=== PATIENT | female | born 1950 | race Caucasian/White ===

== ENCOUNTER 2020-09-19 09:55 | Outpatient (REF) | payer MEDICARE, SELFPAY ==
[2020-09-19 11:13] LABS: MANUAL DIFF FLAG NO
[2020-09-19 11:42] LABS: Glucose Urine UA NEG (NEG); Leukocyte Esterase Urine 1+ (NEG); Nitrite Urine NEG (NEG); Urine Blood NEG (NEG); Urine Ketones NEG (NEG); Urine Protein NEG (NEG-TRACE)
[2020-09-19 11:44] LABS: Appearance Urine HAZY; Color Urine YELLOW
[2020-09-19 11:48] LABS: Alanine Aminotransferase 12 U/L (0-31); Albumin Level 4.5 g/dL (3.5-5.0); Alkaline Phosphatase 97 U/L (39-117); Anion Gap 14 (12-20); Aspartate Amino Transferase 15 U/L (5-31); Bilirubin Total 0.4 mg/dL (0.0-1.0); Blood Urea Nitrogen 23 mg/dL (9-16); Calcium 10.5 mg/dL (8.4-10.2); Carbon Dioxide 30 mmol/L (22-29); Chloride 103 mmol/L (96-108); Cholesterol 190 mg/dL; Estimated Glomerular Filt Rate 56; Glucose Fasting 102 mg/dL (60-99); HDL Cholesterol 50 mg/dL; LDL Cholesterol Calculated 110 mg/dl; Potassium 5.1 mmol/L (3.3-5.1); Sodium 142 mmol/L (135-145); Total Protein 7.2 g/dL (6.5-8.0); Triglycerides 154 mg/dL
[2020-09-19 11:52] LABS: Basophils Absolute Auto 0.1 X10*3/uL (0.0-0.2); Basophils Percent Auto 0.8 % (0-2); Eosinophils Absolute Auto 0.1 X10*3/uL (0.0-0.4); Eosinophils Percent Auto 1.4 % (0-4); Hematocrit 40.3 % (37-47); Hemoglobin 12.8 g/dl (12.0-16.0); Imm Gran Abs Auto 0.03 X10*3/uL (0.00-0.03); Imm Gran Pct Auto 0.4 % (0.0-0.4); Lymphocytes Absolute Auto 1.6 X10*3/uL (1.2-4.9); Lymphocytes Percent Auto 20.6 % (20-40); Mean Corpuscular HGB Conc 31.8 g/dl (31.0-35.0); Mean Corpuscular Volume 94.4 fL (80-98); Mean Platelet Volume 12.3 fL (9.4-12.3); Monocytes Absolute Auto 0.6 X10*3/uL (0.1-1.2); Monocytes Percent Auto 7.6 % (2-11); Neutrophils Absolute Auto 5.3 X10*3/uL (2.0-8.3); Neutrophils Percent Auto 69.2 % (45-73); Platelet Count 212 X10*3/uL (160-400); Red Blood Count 4.27 X10*6/uL (4.20-5.50); Red Cell Distribution Width 13.2 % (11.0-16.0); White Blood Count 7.7 X10*3/uL (4.8-10.8)
[2020-09-19 11:54] LABS: Bacteria Urine TRACE /LPF; RBC Urine 0 /HPF (0); Squamous Epithelial Cell Urine 3+ /LPF
[2020-09-19 12:01] LABS: Vitamin D 25-OH Total 71.8 ng/mL (>30)
[2020-09-19 12:04] LABS: Creatinine Urine 69.95 mg/dL; Microalbum/Creatinine Ratio Ur 12.8 ug/mg cr
[2020-09-19 12:12] LABS: TSH reflex Free T4 0.67 uIU/mL (0.32-4.0)
[2020-09-19 12:19] LABS: Folate > 20.0 ng/mL (> or = 4.0); Vitamin B12 > 2000 pg/mL (200-900)
== END 2020-09-19 09:56 | disposition home or self-care (01) ==
LOC: HO.HMGCLDS 09:55
PROVIDERS: Physician Assistant; PCP Internal Medicine; Visit Provider Internal Medicine
DX: I10 Essential (primary) hypertension (principal); N20.0 Calculus of kidney
CPT/HCPCS: 36415; 80053; 80061; 81001; 82043; 82306; 82607; 82746; 84443; 85025

== ENCOUNTER 2024-08-25 14:22 | Outpatient (AMB) | payer MEDICARE, SELFPAY ==
[2024-08-25 14:29] VITALS: BP 128/72; PULSE 94; O2SAT 90; BMI 28.7
--- NOTE | 2024-08-25 14:29 | MHC.PC.OV ---
Vital Signs 08/25/24 14:29 Height 5 ft 3 in Weight 162 lb BMI 28.7 BP 128/72 Blood Pressure Location Lt brachial Position Sitting Pulse 94 Pulse Source Pulse Oximeter Pulse Oximetry (%) 90 L Oxygen Delivery Method Room Air Intake Visit Reasons: Follow Up Allergies Penicillins [PENICILLINS] Allergy (Unknown, Verified 08/25/24 14:30) RASH Medication List - Last Reconciled 08/25/24 by Mukund Mcmanus MD brimonidine 0.15% 1 drp ophthalmic (eye) BID calcium carbonate (Calcium 500) 500 mg PO DAILY cholecalciferol (vitamin D3) 25 mcg PO DAILY cyanocobalamin (vitamin B-12) 1,000 mcg PO DAILY dorzolamide-timolol 22.3-6.8 mg/mL mL ophthalmic (eye) lisinopril 40 mg PO DAILY pantoprazole 40 mg PO DAILY simvastatin 40 mg PO BEDTIME travoprost 0.004% 0 drps ophthalmic (eye) Tobacco use date assessed: 08/25/24 Fall risk assessment: No Falls in past year Last assessed Fall Risk: 08/25/24 Dental Screening Dental Screen Date: 08/25/24 Did you have a dental visit in the last 12 months?: Yes Did you have a dental problem in the last 6 months where you did not have access to dental care?: No Was dental information given to patient?: Patient has dentist HPI Follow Up HPI Details The patient is a 73-year-old female presenting for follow-up of her chronic medical conditions including Gastroesophageal Reflux Disease (GERD), Essential Hypertension, Hypercholesterolemia, and Osteopenia. She was last seen in 2022. The patient's medical history includes GERD for which she is prescribed pantoprazole. She reports that the medication is not effective. She has a history of hypertension managed with lisinopril 40 mg daily, and hypercholesterolemia managed with simvastatin 40 mg at bedtime. She continues to use tobacco. Previous screenings included a mammogram last conducted in 2019, a bone density test in 2019, and a colonoscopy in 2018. Last blood work was done in 2020. The patient declines current referrals for mammogram, colonoscopy, or bone density scans, expressing a sense of wellbeing and activity despite her age. She is concerned about kidney stones, therefore, ensures adequate water intake. [facility] Medical History Glaucoma HTN (hypertension) Hypercholesterolemia Incidental pulmonary nodule Obesity Overweight (BMI 25.0-29.9) Tobacco abuse Vitamin D deficiency Surgical History History of carpal tunnel release History of ear surgery History of tonsillectomy Family History Father Liver cancer Mother Brain cancer Heart disease Maternal Grandmother No problems noted. Maternal Grandfather Stroke Brother Aortic body tumor Brain tumor Sister Lung cancer Brother Colon cancer Social History Housing: House Alcohol intake: never Patient Tobacco Use Status: Current everyday Tobacco user Tobacco use type: Cigarette Cigarette Packs Per Day: 0.5 Cigarettes Per Day: 20 e-Cigarette/Vaping Use: Never Used Second Hand Smoke Exposure: Yes service: No Current occupational status: retired Current occupational exposures/hazards: No Cognitive needs: No Hearing needs: No Vision needs: No Questionnaire PHQ-9 Over the last 2 weeks, how often have you been bothered by any of the following problems? 1. Little interest or pleasure in doing things: not at all 2. Feeling down, depressed, or hopeless: not at all 3. Trouble falling or staying asleep, or sleeping too much: not at all 4. Feeling tired or having little energy: not at all 5. Poor appetite or overeating: not at all 6. Feeling bad about yourself - or that you are a failure or have let yourself or your family down: not at all 7. Trouble concentrating on things, such as reading the newspaper or watching television: not at all 8. Moving or speaking so slowly that other people could have noticed. Or the opposite - being so fidgety or restless that you have been moving around a lot more than usual: not at all 9. Thoughts that you would be better off or of hurting yourself in some way: not at all Total score: 0 Depression Screening Interpretation: Negative Depression Screening Done: Yes 92000 - PHQ-9 Billing: Yes Source: Developed by Drs. Julián Church, Alberto Garcia and colleagues, with an educational devon from [employer]. Thrive Questionnaire Date Thrive assessed: 08/25/24 I am a: Patient What is your living situation today?: I have a steady place to live Within the past 12 months, did the food you bought not last and you didn't have the money to get more?: Never true Within the past 12 months, did you worry whether your food would run out before you got money to buy more?: Never true Do you have trouble paying for medicines?: No Do you have trouble getting transportation to medical appointments?: No Do you have trouble paying your heating and electricity bill?: No Do you have trouble taking care of your child, family member or friend?: No Do you have trouble with day-to-day activities such as bathing, preparing meals, shopping, managing finances, etc.?: No Are you currently unemployed and looking for a job?: No Are you interested in more education?: No Currently or been in a relationship where the following occur: No concerns reported THRIVE Score: 0 AUDIT C Alcohol Use Questionnaire (AUDIT-C) 1. How often do you have a drink containing alcohol?: Never 2. How many drinks containing alcohol do you have on a typical day when you are drinking?: 1 or 2 (0) 3. How often do you have six or more drinks on one occasion?: Never Total Score: 0 TERE-7 AMB Questionnaire TERE-7 Date TERE - 7 assessed: 08/25/24 Feeling nervous, anxious, or on edge: 0 = Not at all Not being able to stop or control worryin = Not at all Worrying too much about different things: 0 = Not at all Trouble relaxin = Not at all Being so restless that it is hard to sit still: 0 = Not at all Becoming easily annoyed or irritable: 0 = Not at all Feeling afraid as if something awful might happen: 0 = Not at all Total TERE-7 score (0-4 normal; 5-9 mild; 10-14 moderate; 15-21 severe): 0 Source: Developed by Drs. Julián Church, Alberto Garcia and colleagues, with an educational devon from [employer]. TERE-7 Assessment Billing TERE-7 Assessment Tool: TERE-7 Assessment 70501 Physical exam (Primary Care) Vital Signs: Last Vital Signs Pulse 94 08/25/24 14:29 BP 128/72 08/25/24 14:29 Pulse Ox 90 L 08/25/24 14:29 Oxygen Delivery Method Room Air 08/25/24 14:29 BMI result Body Mass Index 28.7 Tobacco/Smoking Status: Tobacco use Status Tobacco use date assessed 08/25/24 08/25/24 14:36 Patient Tobacco Use Status Current everyday Tobacco 08/25/24 14:36 Tobacco use type Cigarette 08/25/24 14:36 e-Cigarette/Vaping Use Never Used 08/25/24 14:36 PHQ-9: PHQ-9 Score PHQ-9: Total score 0 08/25/24 14:36 Depression Screening Interpretation: Negative Thrive Assessment: Date of Thrive Assessment Date Thrive assessed 08/25/24 08/25/24 14:36 Currently or been in a relationship where the following occur: No concerns reported Const General: alert; No acute distress Eyes Conjunctivae: conjunctivae normal Resp Auscultation: clear to auscultation bilaterally Cardio Rate: regular rate Rhythm: regular rhythm GI Inspection: Yes normal to inspection Extrem General: Yes normal to inspection and No edema Coding Level of Care Code Est Pt Level 4 (94113) Complex EM visit Add On G2211 Diagnoses Essential hypertension I10 Hypertension type: essential hypertension Hypercholesterolemia E78.00 Gastroesophageal reflux disease without esophagitis K21.9 Esophagitis presence: without esophagitis Tobacco abuse Z72.0 Overweight (BMI 25.0-29.9) E66.3 Colon cancer screening Z12.11 Osteopenia M85.80 Breast cancer screening by mammogram Z12.31 Additional Codes TERE-7 Assessment Billing - TERE-7 Assessment Tool: TERE-7 Assessment 03979 ([id number]) PHQ-9 - 26391 - PHQ-9 Billing: Yes ([id number]) Assessment & Plan Assessment & Plan (1) HTN (hypertension): Code(s): I10 - Essential (primary) hypertension Category: Medical Qualifiers: Hypertension type: essential hypertension Qualified Code(s): I10 - Essential (primary) hypertension Plan: Continue with blood pressure medication. Decrease salt intake and exercise on lisinopril 40 mg once a day (2) Hypercholesterolemia: Code(s): E78.00 - Pure hypercholesterolemia, unspecified Category: Medical Plan: Avoid fried foods, chicken skin, eggs, butter margarine, pastries and meat. Be it pork or beef they have a lot of cholesterol on simvastatin 40 mg at bedtime (3) GERD (gastroesophageal reflux disease): Code(s): K21.9 - Gastro-esophageal reflux disease without esophagitis Category: Medical Qualifiers: Esophagitis presence: without esophagitis Qualified Code(s): K21.9 - Gastro-esophageal reflux disease without esophagitis Plan: Avoid the foods that causes that usually spicy foods, tomato products, juices, coffee, soda and foods that your sensitive to. After eating do not lie down, allow 3-4 hours before in lie down. And keep the head of bed above 30 degrees to avoid the acid from going up. (4) Tobacco abuse: Comment: decline Lung cancer screening Code(s): Z72.0 - Tobacco use Category: Medical Plan: Patient is strongly advised to stop smoking! (5) Overweight (BMI 25.0-29.9): Code(s): E66.3 - Overweight Category: Medical Plan: Diet and exercise (6) Colon cancer screening: Code(s): Z12.11 - Encounter for screening for malignant neoplasm of colon Category: Medical Plan: Patient is reminded about colonoscopy (7) Osteopenia: Code(s): M85.80 - Other specified disorders of bone density and structure, unspecified site Category: Medical Plan: Patient is reminded about bone density (8) Breast cancer screening by mammogram: Code(s): Z12.31 - Encounter for screening mammogram for malignant neoplasm of breast Category: Medical Plan: Patient is reminded about mammogram Plan - For Gastroesophageal Reflux Disease GERD): Continue pantoprazole, considering patient's feedback on efficacy. Advise to stop smoking. - For Essential Hypertension: Continue lisinopril 40 mg once daily. - For Hypercholesterolemia: Continue simvastatin 40 mg at bedtime. - For Tobacco Use Disorder: Patient is strongly advised to cease tobacco use. - For Osteopenia: Maintain current calcium and vitamin D supplementation. - Routine monitoring: Check sugar, kidney function, blood count, liver function, thyroid, cholesterol, , and vitamin D levels. Blood work order placed, with instructions provided for fasting requirements. - Preventive care declined: Mammogram, colonoscopy, and bone density scan referrals declined. - Discussed current status of flu shots and vaccination history. - Ongoing health advice: Maintain hydration to prevent nephrolithiasis; general advice on diet and exercise reinforced. Orders: Orders Free T4 (Free Thyroxine) Today E78.00 - Pure hypercholesterolemia, unspecified Thyroid Stimulating Hormone Today E78.00 - Pure hypercholesterolemia, unspecified Vitamin B12 and Folate Today E78.00 - Pure hypercholesterolemia, unspecified Vitamin D 25-OH Total Today E78.00 - Pure hypercholesterolemia, unspecified Complete Blood Count Auto Diff Today E78.00 - Pure hypercholesterolemia, unspecified Comprehensive Met. Panel Today E78.00 - Pure hypercholesterolemia, unspecified Lipid Panel Today E78.00 - Pure hypercholesterolemia, unspecified UA CC w/rflx Micro + Cult Today E78.00 - Pure hypercholesterolemia, unspecified, R30.0 - Dysuria Medications: Refilled simvastatin 40 mg PO BEDTIME 90 tabs 0RF E78.00 - Pure hypercholesterolemia, unspecified lisinopril 40 mg PO DAILY 90 tabs 0RF I10 - Essential (primary) hypertension
== END 2024-08-25 14:54 | disposition home or self-care (01) ==
PROVIDERS: PCP Internal Medicine; Visit Provider Internal Medicine
DX: I10 Essential (primary) hypertension (principal); E78.00 Pure hypercholesterolemia, unspecified; K21.9 Gastro-esophageal reflux disease without esophagitis; Z72.0 Tobacco use; E66.3 Overweight; Z12.11 Encounter for screening for malignant neoplasm of colon; M85.80 Other specified disorders of bone density and structure, unspecified site; Z12.31 Encounter for screening mammogram for malignant neoplasm of breast

== ENCOUNTER → 2024-08-25 14:22 | Outpatient (BNVA) | payer MEDICARE, SELFPAY | PROVIDERS: PCP Internal Medicine; Visit Provider Internal Medicine | DX: I10 Essential (primary) hypertension (principal); E78.00 Pure hypercholesterolemia, unspecified; K21.9 Gastro-esophageal reflux disease without esophagitis; E66.3 Overweight; M85.80 Other specified disorders of bone density and structure, unspecified site; Z72.0 Tobacco use | CPT/HCPCS: 96127; 99212 ==